=== PATIENT | male | born 1980 | race Caucasian/White ===

== ENCOUNTER 2019-07-02 10:11 | Emergency (ER) | payer OTHER ==
[2019-07-02 10:17] VITALS: TEMP 99.2
[2019-07-02] MEDS ORDERED: IPRATROPIUM-ALBUTEROL 3 ML NEB INHALATION STA (10:36)
[2019-07-02] MEDS ORDERED: LIDOCAINE 5% PATCH TOPICAL STA (10:37)
[2019-07-02] MEDS ORDERED: KETOROLAC 30 MG/ML 1 ML VIAL IVP STA (10:37)
[2019-07-02] MEDS ORDERED: SODIUM CHLORIDE 0.9% 1,000 ML IV STA (10:38)
[2019-07-02] MEDS ORDERED: DEXAMETHASONE SOD PHOSPHATE 10 MG/ML 1 ML VIAL IV STA (10:39)
--- NOTE | 2019-07-02 10:39 | ED ---
General Adult HPI - General Chief complaint: Chest Pain Stated complaint: chest pain/SOB/lump on chest Time Seen by Provider: 07/02/19 10:17 Source: patient Mode of arrival: ambulatory Limitations: no limitations - History of Present Illness Initial comments: Dictation was produced using [employer] dictation software. please excuse any gra mmatical, word or spelling errors. Chief Complaint: 39-year-old male presents with chest pain. History of Present Illness: She is a 39-year-old male denies any medical history. Patient states she's been having severe sharp chest pain is left anterior chest since about 3 AM this morning. Patient is been coughing severely over the last 12-24 hours. He's been exposed to children and who also are sick. She states she's been coughing up green sputum. Patient also has been constitutional symptoms. He states she's been having fevers. Patient has a tobacco abuser however has never been formally diagnosed with COPD. Patient states that it is sharp severe worse with deep inspiration and cough. No radiation symptoms. States pain is severe especially with exacerbating The ROS documented in this emergency department record has been reviewed and confirmed by me. Those systems with pertinent positive or negative responses have been documented in the HPI. All other systems are other negative and/or noncontributory. PHYSICAL EXAM: General Impression: Alert and oriented x3, not in acute distress HEENT: Normocephalic atraumatic, extra-ocular movements intact, pupils equal and reactive to light bilaterally, mucous membranes moist. Cardiovascular: Heart regular rate and rhythm, S1&S2 audible, no murmurs, rubs or gallops Chest: Diffuse wheezing, reproducible chest pain with palpation to the left anterior chest Abdomen: Bowel sounds present, abdomen soft, non-tender, non-distended, no organomegaly Musculoskeletal: Pulses present and equal in all extremities, no peripheral edema Motor: no focal deficits noted Neurological: CN II-XII grossly intact, no focal motor or sensory deficits noted Skin: Intact with no visualized rashes Psych: Normal affect and mood ED course: 39-year-old male with clinical presentation consistent with chest strain. Patient also having respiratory infectious symptoms. Upon arrival shows heart rate 105, temperature 99.2 cumbersome vital signs are acceptable limits. EKGs benign. Laboratory evaluation shows leukocytosis 18.9, metabolic panel is unremarkable. Patient given breathing treatment, steroids and azithromycin for concerns of acute bronchitis exacerbation and pneumonia. Chest x-ray is nonacute. This concerned the patient has pneumonia without radiographic evidence and bronchitis. Patient clear for discharge. Patient reevaluated after observation in the emergency department with stable medical condition. Patient given treatment for Z-Jens and inhaler. Patient given referral to Dr. Holloway for outpatient management of symptoms. Because he currently does not have a primary care physician. Patient agreeable with discharge. Return precautions discussed. All questions answered. EKG interpretation: Ventricular rate 83, normal sinus rhythm,. Interval 124, QRS 90, QTc 434. No OK prolongation, no QTC prolongation, no ST or T-wave changes noted. Overall, this EKG is unremarkable - Related Data Previous Rx's Medication Instructions Recorded Albuterol Inhaler [Ventolin Hfa 1 - 2 puff INHALATION RT-Q6H PRN 07/02/19 Inhaler] #1 inhaler Azithromycin [Zithromax Z-pack] 0 mg PO DIRECTED #6 tab 07/02/19 Allergies Allergy/AdvReac Type Severity Reaction Status Date / Time No Known Allergies Allergy Verified 07/02/19 11:28 Review of Systems ROS Statement: Those systems with pertinent positive or pertinent negative responses have been documented in the HPI. ROS Other: All systems not noted in ROS Statement are negative. Past Medical History Past Medical History: No Reported History Additional Past Medical History / Comment(s): 01-26-15 ADMITTED TO [facility] WITH AREA TO RT FOOT THAT IS INFLAMMED RED PAINFULL-STATED IT STARTED OUT DRY SKIN KEPT ITCHING IT, PROGRESSIVELY GOT WORSE LOOKING AND PAINFULL SO CAME TO ER. OTHER PAST HX: BORN PREMATURE, TORN LT KNEE MENISUCUS NO SX. History of Any Multi-Drug Resistant Organisms: None Reported Past Surgical History: No Surgical Hx Reported Past Anesthesia/Blood Transfusion Reactions: No Reported Reaction Past Psychological History: No Psychological Hx Reported Smoking Status: Current every day smoker Past Alcohol Use History: Daily, Heavy Past Drug Use History: Marijuana - Past Family History Mother Family Medical History: Hypertension Additional Family Medical History / Comment(s): He is somewhat anxious about his current foot problem. He has an uncle that had gangrene of his foot and required leg amputation. The amputation started below the knee and underwent [id number]. Father Family Medical History: Cancer Additional Family Medical History / Comment(s): AFROM STOMACH AND BRAIN CANCER AT AGE 61 General Exam Limitations: no limitations Course Vital Signs 07/02/19 07/02/19 07/02/19 10:15 10:50 10:58 Temperature 99.2 F Pulse Rate 105 H 88 90 Respiratory 18 Rate Blood Pressure 159/103 O2 Sat by Pulse 96 Oximetry 07/02/19 07/02/19 07/02/19 11:00 11:04 12:31 Temperature Pulse Rate 91 89 Respiratory 20 20 16 Rate Blood Pressure 130/88 O2 Sat by Pulse 97 98 Oximetry Medical Decision Making - Lab Data Result diagrams: 07/02/19 11:00 07/02/19 11:00 Lab Results 07/02/19 07/02/19 Range/Units 11:00 11:00 WBC 18.9 H (3.8-10.6) k/uL RBC 4.61 (4.30-5.90) m/uL Hgb 15.7 (13.0-17.5) gm/dL Hct 45.3 (39.0-53.0) % MCV 98.4 (80.0-100.0) fL MCH 34.1 (25.0-35.0) pg MCHC 34.7 (31.0-37.0) g/dL RDW 11.9 (11.5-15.5) % Plt Count 351 (150-450) k/uL Neutrophils % 86 % Lymphocytes % 5 % Monocytes % 7 % Eosinophils % 0 % Basophils % 2 % Neutrophils # 16.3 H (1.3-7.7) k/uL Lymphocytes # 0.9 L (1.0-4.8) k/uL Monocytes # 1.3 H (0-1.0) k/uL Eosinophils # 0.0 (0-0.7) k/uL Basophils # 0.3 H (0-0.2) k/uL Sodium 134 L (137-145) mmol/L Potassium 4.3 (3.5-5.1) mmol/L Chloride 95 L (98-107) mmol/L Carbon Dioxide 26 (22-30) mmol/L Anion Gap 13 mmol/L BUN 17 (9-20) mg/dL Creatinine 0.92 (0.66-1.25) mg/dL Est GFR (CKD-EPI)AfAm >90 (>60 ml/min/1.73 sqM) Est GFR (CKD-EPI)NonAf >90 (>60 ml/min/1.73 sqM) Glucose 115 H (74-99) mg/dL Calcium 9.1 (8.4-10.2) mg/dL Disposition Clinical Impression: Acute bronchitis Disposition: HOME SELF-CARE Condition: Good Instructions (If sedation given, give patient instructions): Community Acquired Pneumonia (ED) Additional Instructions: prescriptions sent to pharmacy Prescriptions: Albuterol Inhaler [Ventolin Hfa Inhaler] 1 - 2 puff INHALATION RT-Q6H PRN #1 inhaler PRN Reason: Dyspnea Azithromycin [Zithromax Z-pack] 0 mg PO DIRECTED #6 tab Is patient prescribed a controlled substance at d/c from ED?: No Referrals: Tasha Holloway MD [REFERRING] - 1-2 days Time of Disposition: 12:40
--- NOTE | 2019-07-02 10:53 | XR ---
EXAMINATION TYPE: XR chest 2V DATE OF EXAM: 07/02/2019 COMPARISON: NONE HISTORY: Chest pain TECHNIQUE: Frontal and lateral views of the chest are obtained. FINDINGS: There is no focal air space opacity. No evidence for pneumothorax. No pleural effusion. The cardiac silhouette size is within normal limits. The osseous structures are grossly intact. IMPRESSION: 1. No acute cardiopulmonary process.
[2019-07-02 11:13] LABS: Basophils # (A) 0.3 k/uL (0-0.2); Basophils % (A) 2 %; Eosinophils % (A) 0 %; HCT 45.3 % (39.0-53.0); HGB 15.7 gm/dL (13.0-17.5); Lymphocytes # (A) 0.9 k/uL (1.0-4.8); Lymphocytes % (A) 5 %; MCH 34.1 pg (25.0-35.0); MCHC 34.7 g/dL (31.0-37.0); MCV 98.4 fL (80.0-100.0); Mean Platelet Volume 6.9; Monocytes # (A) 1.3 k/uL (0-1.0); Monocytes % (A) 7 %; Neutrophils # (A) 16.3 k/uL (1.3-7.7); Neutrophils % (A) 86 %; Platelet Count 351 k/uL (150-450); RBC 4.61 m/uL (4.30-5.90); RDW 11.9 % (11.5-15.5); WBC 18.9 k/uL (3.8-10.6)
[2019-07-02 11:26] LABS: African American GFR (CKD) >90 (>60 ml/min/1.73 sqM); Anion Gap 13 mmol/L; Blood Urea Nitrogen 17 mg/dL (9-20); Calcium 9.1 mg/dL (8.4-10.2); Carbon Dioxide 26 mmol/L (22-30); Chloride 95 mmol/L (98-107); Glucose 115 mg/dL (74-99); Potassium 4.3 mmol/L (3.5-5.1); Sodium 134 mmol/L (137-145)
[2019-07-02] MEDS ORDERED: AZITHROMYCIN 500 MG TAB PO STA (12:29)
[2019-07-02 12:32] VITALS: BP 130/88; PULSE 89; RESP 16
== END 2019-07-02 13:02 | disposition home or self-care (01) ==
LOC: EC 10:11
DX: J20.9 Acute bronchitis, unspecified (principal); F17.200 Nicotine dependence, unspecified, uncomplicated; Z82.49 Family history of ischemic heart disease and other diseases of the circulatory system
CPT/HCPCS: 36415; 94640; 93005; 80048; 85025; 71046; 99284; 96374; 96375; 96361; J1100; J1885

== ENCOUNTER → 2022-02-26 | Outpatient (CLI) | payer OTHER ==
--- NOTE | 2022-02-26 11:13 | XR ---
EXAMINATION TYPE: XR chest 2V DATE OF EXAM: 02/26/2022 COMPARISON: NONE HISTORY: Chest pain TECHNIQUE: Frontal and lateral views of the chest are obtained. FINDINGS: There is no focal air space opacity. No evidence for pneumothorax. No pleural effusion. The cardiac silhouette size is within normal limits. The osseous structures are grossly intact. IMPRESSION: 1. No acute cardiopulmonary process.
[2022-02-26 15:13] LABS: Basophils # (A) 0.05 X 10*3/uL (0.00-0.10); Basophils % (A) 0.6 %; Eosinophils % (A) 2.5 %; HCT 45.9 % (39.6-50.0); HGB 15.1 g/dL (13.0-17.0); Immature Grans, Automated 0.2 %; Lymphocytes # (A) 2.65 X 10*3/uL (0.90-5.00); Lymphocytes % (A) 32.9 %; MCH 31.6 pg (27.0-32.0); MCHC 32.9 g/dL (32.0-37.0); Mean Platelet Volume 10.3 fL (9.5-12.2); Monocytes % (A) 8.7 %; NRBC Per 100 WBC 0 /100 WBCS (0.0-0.0); Neutrophils # (A) 4.44 X 10*3/uL (1.80-7.70); Neutrophils % (A) 55.1 %; Platelet Count 379 X 10*3/uL (140-440); RBC 4.78 X 10*6/uL (4.40-5.60); RDW 12.7 % (11.5-14.5); WBC 8.06 X 10*3/uL (4.50-10.00)
[2022-02-26 15:39] LABS: ALT 30 U/L (10-49); AST 23 U/L (14-35); African American GFR (CKD) 105.8 (60.0-200.0); Albumin 4.5 g/dL (3.8-4.9); Albumin/Globulin Ratio 1.96 (1.60-3.17); Alkaline Phosphatase 92 U/L (41-126); Blood Urea Nitrogen 10.3 mg/dL (9.0-27.0); Calcium 9.9 mg/dL (8.7-10.3); Carbon Dioxide 28.8 mmol/L (20.0-27.5); Chloride 102 mmol/L (96-109); Chol/HDL Ratio 3.55 Ratio; Globulin 2.3 g/dL (1.6-3.3); Glucose 81 mg/dL (70-110); LDL Cholesterol,Calculated 118.8 mg/dL (0.0-131.0); Non-African American GFR(CKD) 91.3 (60.0-200.0); Potassium 4.5 mmol/L (3.5-5.5); Sodium 140 mmol/L (135-145); Total Protein 6.8 g/dL (6.2-8.2); VLDL Calculation 10.54 mg/dL (5.00-40.00)
== END | disposition home or self-care (01) ==
LOC: LABWHC1 10:14
PROVIDERS: ATTEND Family Medicine
DX: Z00.00 Encounter for general adult medical examination without abnormal findings (principal); Z11.59 Encounter for screening for other viral diseases; R61 Generalized hyperhidrosis
CPT/HCPCS: 36415; 71046; 80053; 80061; 84439; 84443; 85025; 86803

== ENCOUNTER → 2023-01-03 | Outpatient (CLI) | payer OTHER ==
--- NOTE | 2023-01-03 09:58 | XR ---
EXAMINATION TYPE: XR chest 2V DATE OF EXAM: 01/03/2023 COMPARISON: Chest x-ray February 26, 2022 HISTORY: COPD. Congestion for one month. TECHNIQUE: Frontal and lateral views of the chest are obtained. FINDINGS: There is no focal air space opacity, pleural effusion, or pneumothorax seen. The cardiac silhouette size is within normal limits. The osseous structures are intact. Patient nipple overlies left lower thorax similar to prior x-ray. IMPRESSION: No acute cardiopulmonary process. No significant change from prior.
[2023-01-03 15:18] LABS: Basophils # (A) 0.06 X 10*3/uL (0.00-0.10); Basophils % (A) 0.8 %; Eosinophils # (A) 0.21 X 10*3/uL (0.04-0.35); Eosinophils % (A) 2.8 %; HCT 43.7 % (39.6-50.0); HGB 14.8 g/dL (13.0-17.0); Immature Grans, Automated 0.3 %; Lymphocytes # (A) 2.01 X 10*3/uL (0.90-5.00); Lymphocytes % (A) 26.3 %; MCH 32.3 pg (27.0-32.0); MCHC 33.9 g/dL (32.0-37.0); MCV 95.4 fL (80.0-97.0); Mean Platelet Volume 9.4 fL (9.5-12.2); Monocytes # (A) 0.62 X 10*3/uL (0.20-1.00); Monocytes % (A) 8.1 %; NRBC Per 100 WBC 0 /100 WBCS (0.0-0.0); Neutrophils # (A) 4.71 X 10*3/uL (1.80-7.70); Neutrophils % (A) 61.7 %; Platelet Count 500 X 10*3/uL (140-440); RBC 4.58 X 10*6/uL (4.40-5.60); RDW 12.1 % (11.5-14.5); WBC 7.63 X 10*3/uL (4.50-10.00)
[2023-01-03 15:39] LABS: Chol/HDL Ratio 3.05 Ratio; LDL Cholesterol,Calculated 86.3 mg/dL (0.0-131.0); VLDL Calculation 9.22 mg/dL (5.00-40.00)
[2023-01-03 15:40] LABS: ALT 16 U/L (10-49); AST 19 U/L (14-35); Albumin 4.4 g/dL (3.8-4.9); Albumin/Globulin Ratio 1.63 (1.60-3.17); Alkaline Phosphatase 85 U/L (41-126); BUN/Creat Ratio 13.78 Ratio (12.00-20.00); Blood Urea Nitrogen 13.2 mg/dL (9.0-27.0); Calcium 9.6 mg/dL (8.7-10.3); Carbon Dioxide 27.3 mmol/L (20.0-27.5); Chloride 104 mmol/L (96-109); Globulin 2.7 g/dL (1.6-3.3); Glucose 94 mg/dL (70-110); Non-African American GFR(CKD) 96.7 (60.0-200.0); Potassium 4.2 mmol/L (3.5-5.5); Sodium 141 mmol/L (135-145); Total Bilirubin <0.15 mg/dL (0.30-1.20)
[2023-01-03 16:16] LABS: Erythrocyte Sedimentation Rate 9 mm/Hr (0-15)
[2023-01-03 21:20] LABS: HIV 2 AB Non-Reactive (Non-Reactive); HIV AB P24 Non-Reactive (Non-Reactive); HIV P24 AG Non-Reactive (Non-Reactive)
== END | disposition home or self-care (01) ==
LOC: LABWHC1 08:50
PROVIDERS: ATTEND Family Medicine
DX: Z00.00 Encounter for general adult medical examination without abnormal findings (principal); Z11.4 Encounter for screening for human immunodeficiency virus [HIV]; J44.9 Chronic obstructive pulmonary disease, unspecified; R63.4 Abnormal weight loss
CPT/HCPCS: 36415; 71046; 80053; 80061; 82306; 83036; 84439; 84443; 85025; 85652; 86140; 87390

== ENCOUNTER 2024-03-14 09:11 | Emergency (ER) | payer OTHER ==
[2024-03-14 09:34] VITALS: BP 182/103; PULSE 98; RESP 18; TEMP 98
--- NOTE | 2024-03-14 10:14 | ED ---
Extremity Problem HPI - General Chief complaint: Recheck/Abnormal Lab/Rx Stated complaint: L Arm Infection Time Seen by Provider: 03/14/24 09:49 Source: patient, RN notes reviewed Mode of arrival: ambulatory Limitations: no limitations - History of Present Illness Initial comments: This is a 43-year-old male who presents to the emergency department for a left arm infection. States that on 02/17 he woke up with his left arm red, swollen, and stiff. He went to [facility] and was admitted for cellulitis and septic bursitis. He was on IV antibiotics and discharged with a prescription for linezolid. He has been on the linezolid since and is scheduled to finish this tomorrow. His has been bandaging the wound and he is following with infectious disease in [place], [place]. His is sending the provider, Dr. Aldana, regular photos and he saw him in the office 2 days ago. He was concerned about the wound not healing as fast as he would like it to and advised he go to the emergency department for repeat wound cultures. Patient states that this does look remarkably better and the pain is improved as well. - Related Data Previous Rx's Medication Instructions Recorded Albuterol Inhaler [Ventolin Hfa 1 - 2 puff INHALATION RT-Q6H PRN 07/02/19 Inhaler] #1 inhaler Azithromycin [Zithromax Z-pack] 0 mg PO DIRECTED #6 tab 07/02/19 Allergies Allergy/AdvReac Type Severity Reaction Status Date / Time No Known Allergies Allergy Verified 03/14/24 09:34 Review of Systems ROS Statement: Those systems with pertinent positive or pertinent negative responses have been documented in the HPI. ROS Other: All systems not noted in ROS Statement are negative. Past Medical History Past Medical History: No Reported History Additional Past Medical History / Comment(s): 01-26-15 ADMITTED TO [facility] WITH AREA TO RT FOOT THAT IS INFLAMMED RED PAINFULL-STATED IT STARTED OUT DRY SKIN KEPT ITCHING IT, PROGRESSIVELY GOT WORSE LOOKING AND PAINFULL SO CAME TO ER. OTHER PAST HX: BORN PREMATURE, TORN LT KNEE MENISUCUS NO SX. infection to left arm. History of Any Multi-Drug Resistant Organisms: None Reported Past Surgical History: No Surgical Hx Reported Past Anesthesia/Blood Transfusion Reactions: No Reported Reaction Past Psychological History: No Psychological Hx Reported Smoking Status: Current every day smoker Past Alcohol Use History: Daily, Heavy Past Drug Use History: Marijuana - Past Family History Mother Family Medical History: Hypertension Additional Family Medical History / Comment(s): He is somewhat anxious about his current foot problem. He has an uncle that had gangrene of his foot and required leg amputation. The amputation started below the knee and underwent [id number]. Father Family Medical History: Cancer Additional Family Medical History / Comment(s): AFROM STOMACH AND BRAIN CANCER AT AGE 61 General Exam Limitations: no limitations General appearance: alert, in no apparent distress Head exam: Present: atraumatic, normocephalic, normal inspection Respiratory exam: Present: normal lung sounds bilaterally. Absent: respiratory distress, wheezes, rales, rhonchi, stridor Cardiovascular Exam: Present: regular rate, normal rhythm, normal heart sounds. Absent: systolic murmur, diastolic murmur, rubs, gallop, clicks Extremities exam: Present: other (Open wound to the left elbow with very minor surrounding erythema. The wound appears to have areas of slough and fibrinous tissue. Minor tenderness.) Neurological exam: Present: alert, oriented X3, CN II-XII intact Psychiatric exam: Present: normal affect, normal mood Course Vital Signs 03/14/24 09:23 Temperature 98.0 F Pulse Rate 98 Respiratory 18 Rate Blood Pressure 182/103 O2 Sat by Pulse 98 Oximetry Medical Decision Making - Medical Decision Making This is a 43-year-old male who presents to the emergency department for a left upper extremity wound. Was pt. sent in by a medical professional or institution? @ -Infectious disease Did you speak to anyone other than the patient for history? @ -No Did you review nursing and triage notes? @ -Yes, and I agree, it is accurate with regards to the patient's symptoms. Were old charts reviewed? @ -No Differential Diagnosis? @ -Differential Wound: Burn, insect bite, cellulitis, ulcer, abrasion, abscess, this is not meant to be an all-inclusive list. EKG interpreted by me (3pts min.)? @ -Not obtained X-rays interpreted by me (1pt min.)? @ -Not obtained CT interpreted by me (1pt min.)? @ -Not obtained U/S interpreted by me (1pt. min.)? @ -Not obtained What testing was considered but not performed? (CT, X-rays, U/S, labs)? Why? @ -None What meds were considered but not given? Why? @ -None Did you discuss the management of the patient with other professionals? @ -No Did you reconcile home meds? @ -No Was smoking cessation discussed for >3mins.? @ -I discussed smoking cessation for greater than 3 minutes. The risk of smoking were discussed with the patient including but not limited to risks of cancer, stroke, coronary artery disease and COPD. Also discussed with patient were multiple methods of quitting smoking. Lastly we discussed the financial cost of smoking. Was critical care preformed (if so, how long)? @ -No Were there social determinants of health that impacted care today? How? (Ho melessness, low income, unemployed, alcoholism, drug addiction, transportation, low edu. Level, literacy, decrease access to med. care, [place] [facility], rehab)? @ -No Was there de-escalation of care discussed even if they declined? (Discuss DNR or withdrawal of care, Hospice)? @ -No What co-morbidities impacted this encounter? (DM, HTN, Smoking, COPD, CAD, Cancer, CVA, Hep., AIDS, mental health diagnosis, sleep apnea, morbid obesity)? @ -Smoking Was patient admitted / discharged? @ -Discharged. Physical examination demonstrates an ulceration/wound to the left arm/elbow. While this is large, it does appear to be healing and the patient was not in significant discomfort. Aerobic and anaerobic wound cultures obtained. Patient is currently on linezolid and is scheduled to finish this tomorrow. Advised to contact his infectious disease provider tomorrow for further instruction. Case discussed with ED attending Dr. Curiel. Return precautions reviewed in depth, the patient is instructed to return to the emergency department with any new, worsening, or concerning symptoms. Patient verbalized understanding. Undiagnosed new problem with uncertain prognosis? @ -None Drug Therapy requiring intensive monitoring for toxicity (Heparin, Nitro, Insulin, Cardizem)? @ -None Were any procedures done? @ -None Diagnosis/symptom? @ -Left upper extremity cellulitis Acute, or Chronic, or Acute on Chronic? @ -Acute Uncomplicated (without systemic symptoms) or Complicated (systemic symptoms)? @ -Uncomplicated Side effects of treatment? @ -None Exacerbation, Progression, or Severe Exacerbation] @ -Improving Poses a threat to life or bodily function? @ -Not at this time Disposition Clinical Impression: Left arm cellulitis, Nicotine dependence Disposition: HOME SELF-CARE Instructions (If sedation given, give patient instructions): Cellulitis (ED) Additional Instructions: Return to the emergency department with any new, worsening, or concerning symptoms. Follow-up with infectious disease. Is patient prescribed a controlled substance at d/c from ED?: No Referrals: Onesimo Abad MD [Primary Care Provider] - 1-2 days Time of Disposition: 10:14
== END 2024-03-14 10:29 | disposition home or self-care (01) ==
LOC: EC 09:11
DX: L03.114 Cellulitis of left upper limb (principal); F17.200 Nicotine dependence, unspecified, uncomplicated
CPT/HCPCS: 87070; 87075; 87077; 87186; 87205; 99283